=== PATIENT | male | born 1955 | race Caucasian/White ===

== ENCOUNTER 2016-07-15 18:34 | Emergency (ER) | payer BC, OTHER ==
[~2016-07-15] VITALS: Ht 175.3 cm; Wt 82.0 kg
[2016-07-15 18:39] VITALS: Ht 175.3 cm; Wt 82.0 kg
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
[2016-07-15] MEDS ORDERED: CYCL-319 PO (21:04)
== END 2016-07-15 21:34 | disposition home or self-care (01) ==
LOC: FTE 18:34
DX: S19.9XXA Unspecified injury of neck, initial encounter (principal); M62.838 Other muscle spasm; S39.92XA Unspecified injury of lower back, initial encounter; E11.9 Type 2 diabetes mellitus without complications; I10 Essential (primary) hypertension; V43.52XA Car driver injured in collision with other type car in traffic accident, initial encounter
CPT/HCPCS: 72040; 73030

== ENCOUNTER 2017-04-16 17:40 | Emergency (ER) | END 2017-04-16 21:12 | disposition home or self-care (01) ==